=== PATIENT | female | born 1950 | race Caucasian/White ===

== ENCOUNTER 2017-06-03 11:57 | Emergency (ER) | payer MEDICARE ==
[~2017-06-03] VITALS: Ht 152.4 cm; Wt 60.0 kg
[~2017-06-03 11:57] MED LIST: CALCIUM PO; CELE100C PO; GABA-826 PO; HYDR-3240 PO; MAGNESIUM PO; METH750T87 PO; OXYC-302 PO; OXYC-307 PO; PREG75CA PO; SENN1TAB PO; VIT1TABL32 PO; VITAMIN C PO
[2017-06-03] MEDS ORDERED: GABA300C10 PO (13:10)
[2017-06-03] MEDS ORDERED: OXYC10TA47 PO (13:10)
[2017-06-03] MEDS ORDERED: TERI2.4P INJ (13:10)
[2017-06-03] MEDS ORDERED: ONDANSETRON 2MG/ML, 2ML ONE (14:38)
[2017-06-03] MEDS ORDERED: morphine SULFATE 10 MG/ML, 1ML ONE (14:38)
[2017-06-03] MEDS ORDERED: SODIUM CHLORIDE FLUSH 10ML SYR IVF ONE (15:00)
[2017-06-03] MEDS ORDERED: MORPHINE SULFATE 4 MG/ML, 1ML IVPush PRN (15:00)
[2017-06-03] MEDS ORDERED: ONDANSETRON 2MG/ML, 2ML IVPush ONE (15:00)
[2017-06-03 15:17] VITALS: BP 152/88
[2017-06-03] MEDS ORDERED: MIDAZOLAM 1 MG/ML, 2ML ONE (15:22)
[2017-06-03] MEDS ORDERED: FENTANYL PF 100 MCG/2ML ONE (15:22)
[2017-06-03] MEDS ORDERED: PROPOFOL 10 MG/ML, 20ML ONE (15:24)
[2017-06-03] MEDS ORDERED: SUCCINYLCHOLINE 20 MG/ML, 10ML ONE (15:24)
[2017-06-03] MEDS ORDERED: LORazepam 2 MG/ML, 1ML IVPush PRN (16:00)
[2017-06-03] MEDS ORDERED: FENTANYL PF 100 MCG/2ML IV PRN (16:00)
[2017-06-03] MEDS ORDERED: MEPERIDINE/PF 25MG/0.5ML IVPush PRN (16:00)
[2017-06-03] MEDS ORDERED: ONDANSETRON 2MG/ML, 2ML IVPush PRN (16:00)
[2017-06-03] MEDS ORDERED: morphine SULFATE 10 MG/ML, 1ML IV PRN (16:00)
[2017-06-03] MEDS ORDERED: LABETALOL 5MG/ML, 20ML IV PRN (16:00)
[2017-06-03] MEDS ORDERED: OXYcodone 5 MG/5 ML ORAL.SOL UDC PO PRN (16:00)
[2017-06-03] MEDS ORDERED: hydrALAzine 20 MG/ML, 1ML IV PRN (16:00)
[2017-06-03] MEDS ORDERED: PROMETHAZINE 25 MG/ML, 1ML IV PRN (16:00)
== END 2017-06-03 15:20 | disposition other institution (70) ==
LOC: ED 12:35
DX: K22.2 Esophageal obstruction (principal)
CPT/HCPCS: 43249; 96374; 96375; 99285; C1725; J0330; J2250; J2405; J2704; J3010

== ENCOUNTER → 2017-12-08 | Outpatient (CLI) | payer MEDICARE ==
[~2017-12-08] MED LIST changes: +GABA300C10 PO; +OXYC10TA47 PO; +TERI2.4P INJ
== END | disposition home or self-care (01) ==
LOC: RAD 13:45
PROVIDERS: ATTEND Neurological Surgery
DX: M41.9 Scoliosis, unspecified (principal)
CPT/HCPCS: 72082